=== PATIENT | female | born 1965 | race Two or more races ===

== ENCOUNTER 2022-04-28 17:45 | Emergency (ER) | payer OTHER ==
[~2022-04-28] VITALS: Ht 160 cm; Wt 83.0 kg
[2022-04-28] MEDS ORDERED: DICLOFENAC SODI75 MG PO (22:39)
== END 2022-04-28 22:47 | disposition home or self-care (01) ==
LOC: ER 17:45
DX: R10.9 Unspecified abdominal pain (principal); Z20.822 Contact with and (suspected) exposure to COVID-19